=== PATIENT | female | born 1985 | race Two or more races ===

== ENCOUNTER 2021-01-24 11:48 | Emergency (ER) | payer OTHER ==
[~2021-01-24] VITALS: Ht 154.9 cm; Wt 76.2 kg
[2021-01-24] MEDS ORDERED: ASPIRIN 81 MG TABLET CHEW PO ONE (12:30)
[2021-01-24 12:43] LABS: BASOPHILS % (AUTO) 1 % (0-1); EOSINOPHILS % (AUTO) 2 % (1-7); LYMPHOCYTES % (AUTO) 41 % (22-44); MEAN CORPUSCULAR HEMOGLOBIN 31.9 pg (27.0-34.8); MEAN CORPUSCULAR HGB CONC 34.2 g/dL (32.4-35.8); MEAN PLATELET VOLUME 9.9 fL (7.4-10.4); MONOCYTES % (AUTO) 9 % (2-9); NEUTROPHILS % (AUTO) 47 % (42-75); PLATELET COUNT 203 x10^3/uL (130-400); RED BLOOD COUNT 4.67 x10^6/uL (3.82-5.3); RED CELL DISTRIBUTION WIDTH 14.2 % (9.6-15.2)
[2021-01-24 12:46] LABS: MD NO
[2021-01-24 12:54] LABS: ALBUMIN 4.1 g/dL (3.4-5.0); ANION GAP 7 mmol/L (5-15); CALCIUM 8.9 mg/dL (8.5-10.1); CHLORIDE 110 mmol/L (98-107); CREATININE 0.78 mg/dL (0.55-1.02)
[2021-01-24 12:59] LABS: TROPONIN I < 0.015 ng/mL (0.000-0.045)
[2021-01-24] MEDS ORDERED: ASPIRIN 81 MG TABLET CHEW ONE (13:37)
--- NOTE | 2021-01-24 13:44 | NUR ---
PT CAME IN [facility] HEART FLUTTERING "NOT REALLY A PAIN BUT A PALP". PT STATES IT HAPPENED ON SATURDAY AND THEN AGAIN THIS MORNING AND THE FEELING HAS NOT GONE AWAY. EKG COMPLETE. LABS DRAWN. MEDICATED PER OCT. CONNECTED TO ALL MONITORING EQUIPMENT
[2021-01-24 14:04] VITALS: BP 102/64
== END 2021-01-24 16:46 | disposition home or self-care (01) ==
LOC: ED 13:46
DX: R07.89 Other chest pain (principal); R94.31 Abnormal electrocardiogram [ECG] [EKG]
CPT/HCPCS: 36415; 71045; 80048; 82040; 83880; 84484; 85025; 93005; 99285